=== PATIENT | male | born 1980 | race African-American/Black ===

== ENCOUNTER 2017-01-21 14:22 | Emergency (ER) | payer OTHER ==
[~2017-01-21] VITALS: Ht 175.3 cm; Wt 81.6 kg
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
[2017-01-21 15:11] LABS: APPEARANCE,URINE Clear (CLEAR); BILIRUBIN,URINE Negative (NEGATIVE); BLOOD, URINE Negative Ery/uL (NEGATIVE); COLOR,URINE Yellow (YELLOW); KETONES,URINE Trace (NEGATIVE); LEUKOCYTE ESTERASE ,URINE Negative (NEGATIVE); NITRITE, URINE Negative (NEGATIVE); PH,URINE 5.5 (5.0-8.0); PROTEIN,URINE Negative (NEGATIVE); UGLUCOSE Negative (NEGATIVE); UROBILINOGEN,URINE 0.2 EU/dL (0.2)
[2017-01-21 15:15] LABS: BASOPHILS # (AUTO) 0.1 /CMM (0.0-0.2); BASOPHILS % (AUTO) 1.1 % (0.0-2.0); EOSINOPHILS # (AUTO) 0.1 /CMM (0.0-0.7); EOSINOPHILS % (AUTO) 2.2 % (0.0-6.0); HEMATOCRIT 41 % (39-51); HEMOGLOBIN 13.4 g/dL (13.5-17.5); LYMPHOCYTES # (AUTO) 1.7 /CMM (0.8-4.8); LYMPHOCYTES % (AUTO) 31.4 % (20.0-44.0); MEAN CORPUSCULAR HEMOGLOBIN 30 PG (26.0-33.0); MEAN CORPUSCULAR HGB CONC 33 g/dl (31.0-36.0); MEAN CORPUSCULAR VOLUME 90 fL (80-96); MONOCYTES # (AUTO) 0.8 /CMM (0.1-1.30); MONOCYTES % (AUTO) 14.3 % (2.0-12.0); NEUTROPHILS # (AUTO) 2.7 /CMM (1.8-8.9); PLATELET COUNT (AUTO) 333 /CMM (150-450); RDW COEFFICIENT OF VARIATION 11.4 (11.5-15.0); RED BLOOD CELL COUNT(AUTO) 4.57 MIL/uL (4.5-6.0); WHITE BLOOD COUNT (AUTO) 5.4 K/uL (4.3-11.0)
[2017-01-21 15:23] LABS: RBC,URINE NONE SEEN /HPF (0-2); WBC,URINE 0-2 /HPF (0-3)
[2017-01-21 15:24] LABS: BACTERIA,URINE None seen /HPF (None Seen); SQUAMOUS EPITHELIAL CELL,UR Few /HPF (None Seen)
[2017-01-21 15:34] LABS: BILIRUBIN,DIRECT 0.1 mg/dL (0.0-0.2); BILIRUBIN,TOTAL 0.3 mg/dL (0.2-1.0); CALCIUM, SERUM 9.1 mg/dL (8.5-10.1); CREATININE 1.2 mg/dL (0.6-1.3); TOTAL PROTEIN, SERUM 7.8 g/dL (6.4-8.2)
--- NOTE | 2017-01-21 15:50 | NUR ---
RESTING QUIETLY, NAD NOTED. ALL NEEDS ATTENDED TO.
--- NOTE | 2017-01-21 16:45 | NUR ---
Patient discharged to home in stable condition. Written and verbal after care instructions given. Patient verbalizes understanding of instruction. AMBULATORY WITH STEADY GAIT.
[2017-01-21 16:57] VITALS: BP 134/82
== END 2017-01-21 16:58 | disposition home or self-care (01) ==
LOC: ER 14:30
DX: K64.9 Unspecified hemorrhoids (principal); B35.9 Dermatophytosis, unspecified; M19.90 Unspecified osteoarthritis, unspecified site; F17.200 Nicotine dependence, unspecified, uncomplicated
CPT/HCPCS: 36415; 74176; 80048; 80076; 81001; 83690; 85025; 99285; A4606; Z7610; 81000-TC

== ENCOUNTER 2017-02-22 09:43 | Emergency (ER) | payer OTHER ==
[~2017-02-22] VITALS: Ht 175.3 cm; Wt 81.6 kg
[2017-02-22 09:57] VITALS: BP 155/102
[2017-02-22] MEDS ORDERED: IBUPROFEN 600 MG TABLET PO ONE ×2 (10:52→11:00)
== END 2017-02-22 10:51 | disposition home or self-care (01) ==
LOC: ER 09:45
DX: L02.01 Cutaneous abscess of face (principal); I88.9 Nonspecific lymphadenitis, unspecified; F17.200 Nicotine dependence, unspecified, uncomplicated
CPT/HCPCS: 99283; A4606; Z7610

== ENCOUNTER 2017-02-24 22:34 | Emergency (ER) | payer OTHER ==
[~2017-02-24] VITALS: Ht 175.3 cm; Wt 81.6 kg
[2017-02-24 22:36] VITALS: BP 124/84
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
[2017-02-24] MEDS ORDERED: LIDOCAINE HCL/PF 1% 30 ML SDV ONE (22:53)
--- NOTE | 2017-02-24 23:01 | NUR ---
COMMUNICATIONS EQUIPMENT OPERATOR AQUINO AT BEDSIDE TO DRAIN ABSCESS.
== END 2017-02-24 23:13 | disposition home or self-care (01) ==
LOC: ER 22:38
DX: H60.01 Abscess of right external ear (principal)
CPT/HCPCS: 10060; 99283; A4606; Z7610; J3490

== ENCOUNTER 2017-06-20 16:15 | Emergency (ER) | payer OTHER ==
[~2017-06-20] VITALS: Ht 175.3 cm; Wt 81.6 kg
[2017-06-20 16:20] VITALS: BP 133/79
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
[2017-06-20] MEDS ORDERED: HYDROCODONE/APAP 5/325MG 1 EACH TABLET ONE (16:38)
[2017-06-20] MEDS ORDERED: IBUPROFEN 600 MG TABLET PO ONE (16:38)
[2017-06-20] MEDS ORDERED: IBUPROFEN 400 MG TABLET PO ONE (17:00)
[2017-06-20] MEDS ORDERED: HYDROCODONE/APAP 5/325MG 1 EACH TABLET PO ONE (17:00)
== END 2017-06-20 18:02 | disposition home or self-care (01) ==
LOC: ER 16:19
DX: S16.1XXA Strain of muscle, fascia and tendon at neck level, initial encounter (principal); F17.200 Nicotine dependence, unspecified, uncomplicated; V49.59XA Passenger injured in collision with other motor vehicles in traffic accident, initial encounter; Y93.89 Activity, other specified; Y92.413 State road as the place of occurrence of the external cause; Y99.8 Other external cause status
CPT/HCPCS: 72125; 99284; A4606; Z7610

== ENCOUNTER 2018-02-26 15:21 | Emergency (ER) | payer OTHER ==
[~2018-02-26] VITALS: Ht 175.3 cm; Wt 81.2 kg
[2018-02-26] MEDS ORDERED: LIDOCAINE 1% INJ 50 ML MDV IJ ONE (16:00)
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
--- NOTE | 2018-02-26 16:36 | NUR ---
PT. VERBALIZED UNDERSTANDING OF AFTERCARE INSTRUCTIONS.Patient discharged to home in stable condition. Written and verbal after care instructions given. Patient verbalizes understanding of instruction.
[2018-02-26 16:39] VITALS: BP 131/98
== END 2018-02-26 16:45 | disposition home or self-care (01) ==
LOC: ER 15:25
DX: S61.216A Laceration without foreign body of right little finger without damage to nail, initial encounter (principal); F17.200 Nicotine dependence, unspecified, uncomplicated; F10.10 Alcohol abuse, uncomplicated; Z60.2 Problems related to living alone; Y90.9 Presence of alcohol in blood, level not specified; W26.0XXA Contact with knife, initial encounter; Y93.89 Activity, other specified; Y92.89 Other specified places as the place of occurrence of the external cause; Y99.8 Other external cause status
CPT/HCPCS: A4606; A6402; A6403; Z7610

== ENCOUNTER 2018-03-08 16:05 | Emergency (ER) | payer OTHER ==
[~2018-03-08] VITALS: Ht 175.3 cm; Wt 79.4 kg
[2018-03-08 16:26] VITALS: BP 129/71
== END 2018-03-08 16:38 | disposition home or self-care (01) ==
LOC: ER 16:06
DX: S61.217D Laceration without foreign body of left little finger without damage to nail, subsequent encounter (principal); M19.90 Unspecified osteoarthritis, unspecified site; F17.200 Nicotine dependence, unspecified, uncomplicated; Z60.2 Problems related to living alone; X58.XXXD Exposure to other specified factors, subsequent encounter
CPT/HCPCS: 99281; A4606; Z7610; Z7502

== ENCOUNTER 2018-10-09 22:37 | Emergency (ER) | payer OTHER ==
[~2018-10-09] VITALS: Ht 175.3 cm; Wt 79.4 kg
--- NOTE | 2018-10-09 22:59 | NUR ---
PT BIBS. C/O "ATE SOME SALAD TODAY. +N/V +DIARRHEA" -SOB +N/V -DIZZY AOX4. AMBULATORY W,.STEADY GAIT. AT BEDSIDE
[2018-10-09] MEDS ORDERED: IV NS 0.9% 1,000 ML BAG IV ONE (23:00)
[2018-10-09] MEDS ORDERED: FAMOTIDINE (20 MG) 20 MG TABLET PO ONE (23:00)
[2018-10-09] MEDS ORDERED: ONDANSETRON HCL/PF 4 MG/2 ML VIAL IVP ONE (23:00)
[2018-10-09] MEDS ORDERED: KETOROLAC TROMETHAMINE INJ 30 MG/ML VIAL IV ONE (23:00)
[2018-10-09] MEDS ORDERED: MAG HYDROX/AL HYDROX/SIMETH 30 ML UDC PO ONE (23:00)
[2018-10-09] MEDS ORDERED: FAMOTIDINE (20 MG) 20 MG TABLET ONE (23:12)
[2018-10-09] MEDS ORDERED: ONDANSETRON HCL/PF 4 MG/2 ML VIAL ONE (23:12)
[2018-10-09] MEDS ORDERED: KETOROLAC TROMETHAMINE 15 MG/ML VIAL ONE (23:12)
[2018-10-09] MEDS ORDERED: MAG HYDROX/AL HYDROX/SIMETH 30 ML UDC ONE (23:12)
[2018-10-09 23:21] LABS: BASOPHILS % (AUTO) 0.4 % (0.0-2.0); EOSINOPHILS % (AUTO) 0.6 % (0.0-6.0); HEMATOCRIT 45 % (39-51); HEMOGLOBIN 14.9 g/dL (13.5-17.5); LYMPHOCYTES # (AUTO) 1.1 /CMM (0.8-4.8); LYMPHOCYTES % (AUTO) 11.3 % (20.0-44.0); MEAN CORPUSCULAR HGB CONC 33 g/dl (31.0-36.0); MEAN CORPUSCULAR VOLUME 93 fL (80-96); MONOCYTES % (AUTO) 9.5 % (2.0-12.0); NEUTROPHILS # (AUTO) 7.9 /CMM (1.8-8.9); NEUTROPHILS % (AUTO) 78.2 % (43.0-81.0); PLATELET COUNT (AUTO) 294 /CMM (150-450); WHITE BLOOD COUNT (AUTO) 10.1 K/uL (4.3-11.0)
[2018-10-09 23:30] LABS: CALCIUM, SERUM 8.8 mg/dL (8.5-10.1); CREATININE 1.1 mg/dL (0.6-1.3); POTASSIUM 3.5 mmol/L (3.5-5.1)
[2018-10-09 23:36] LABS: ALBUMIN 3.9 g/dL (3.4-5.0); BILIRUBIN,DIRECT 0.2 mg/dL (0.0-0.2); BILIRUBIN,TOTAL 0.7 mg/dL (0.2-1.0); TOTAL PROTEIN, SERUM 7.4 g/dL (6.4-8.2)
[2018-10-10] MEDS ORDERED: MORPHINE SULFATE INJ 2 MG/ML DISP.SYRIN IV ONE
[2018-10-10] MEDS ORDERED: IV LR 1000 ML 1,000 ML IV ONE (00:30)
[2018-10-10 01:59] VITALS: BP 130/91
== END 2018-10-10 02:00 | disposition home or self-care (01) ==
LOC: ER 22:39
DX: K85.20 Alcohol induced acute pancreatitis without necrosis or infection (principal); F17.200 Nicotine dependence, unspecified, uncomplicated; M19.90 Unspecified osteoarthritis, unspecified site; Z60.2 Problems related to living alone
CPT/HCPCS: 36415; 76705-TC; 80048-TC; 80076-TC; 83690-TC; 85025-TC; J1885; J2405; J7030; J7120

== ENCOUNTER 2020-10-06 12:48 | Emergency (ER) | payer MEDICAID, OTHER ==
[~2020-10-06] VITALS: Ht 175.3 cm; Wt 79.4 kg
[2020-10-06 12:49] VITALS: BP 125/79
[2020-10-06] MEDS ORDERED: LIDOCAINE /MPF 1% VIAL 5 ML VIAL ONE (13:01)
--- NOTE | 2020-10-06 13:02 | NUR ---
SEEN AND EXAMINED BY .
--- NOTE | 2020-10-06 13:21 | NUR ---
Patient discharged to home in stable condition. Written and verbal after care instructions given. Patient verbalizes understanding of instruction.
[2020-10-06] MEDS ORDERED: LIDOCAINE HCL/PF 1% 30 ML VIAL TP ONE (13:30)
== END 2020-10-06 13:23 | disposition home or self-care (01) ==
LOC: ER 12:49
DX: H60.01 Abscess of right external ear (principal); F10.10 Alcohol abuse, uncomplicated; F17.200 Nicotine dependence, unspecified, uncomplicated; Y90.9 Presence of alcohol in blood, level not specified
CPT/HCPCS: 69000; 99282; A6403; A6407; J3490 ×2

== ENCOUNTER 2021-08-28 11:37 | Emergency (ER) | payer MEDICAID, OTHER ==
[~2021-08-28] VITALS: Ht 167.6 cm; Wt 79.4 kg
[2021-08-28 11:48] VITALS: BP 129/87
--- NOTE | 2021-08-28 13:44 | NUR ---
provided w/ thumb spica. discharge in stable condition.
== END 2021-08-28 13:45 | disposition home or self-care (01) ==
LOC: ER 11:54
DX: S63.502A Unspecified sprain of left wrist, initial encounter (principal); M25.432 Effusion, left wrist; M19.90 Unspecified osteoarthritis, unspecified site; K64.8 Other hemorrhoids; W01.0XXA Fall on same level from slipping, tripping and stumbling without subsequent striking against object, initial encounter; Y93.89 Activity, other specified; Y92.89 Other specified places as the place of occurrence of the external cause; Y99.8 Other external cause status
CPT/HCPCS: 73110; 73130-TC

== ENCOUNTER 2021-09-22 11:47 | Emergency (ER) | payer OTHER ==
[~2021-09-22] VITALS: Ht 175.3 cm; Wt 86.2 kg
[2021-09-22 11:53] VITALS: BP 112/60
[2021-09-22] MEDS ORDERED: IBUPROFEN 600 MG TABLET ONE (12:00)
[2021-09-22] MEDS ORDERED: IBUPROFEN 600 MG TABLET PO ONE (12:00)
--- NOTE | 2021-09-22 12:05 | NUR ---
PT CAME TO ER C/O L SHOULDER PAIN X 5 DAYS. DENIES TRAUMA. REPORTS NUMBNESS/TINGLING IN L UPPER EXTREMITY. AAOX4, BREATHING EVEN AND UNLABORED, ASSISTED TO ER BED 12, CHANGED TO GOWN. WILL CONTINUE TO MONITOR.
[2021-09-22] MEDS ORDERED: IBUP-1955 PO (12:44)
[2021-09-22] MEDS ORDERED: CARI250T PO (12:55)
--- NOTE | 2021-09-22 12:55 | NUR ---
Patient discharged to home in stable condition. Written and verbal after care instructions given. Patient verbalizes understanding of instruction.
== END 2021-09-22 12:57 | disposition home or self-care (01) ==
LOC: ER 11:50
DX: M25.512 Pain in left shoulder (principal); M19.90 Unspecified osteoarthritis, unspecified site; Z87.738 Personal history of other specified (corrected) congenital malformations of digestive system; Z79.1 Long term (current) use of non-steroidal anti-inflammatories (NSAID)
CPT/HCPCS: 73030-TC

== ENCOUNTER 2021-09-30 07:27 | Emergency (ER) | payer OTHER ==
[~2021-09-30] VITALS: Ht 175.3 cm; Wt 81.6 kg
[~2021-09-30 07:27] MED LIST: CARI250T PO; IBUP-1955 PO
[2021-09-30 07:58] VITALS: BP 148/96
[2021-09-30] MEDS ORDERED: KETOROLAC TROMETHAMINE INJ 30 MG/ML VIAL ONE (08:19)
[2021-09-30] MEDS ORDERED: CYCLOBENZAPRINE 10 MG TABLET ONE (08:20)
[2021-09-30] MEDS: KETOROLAC TROMETHAMINE INJ 30 MG/ML VIAL IM ONE (08:24)
[2021-09-30] MEDS: CYCLOBENZAPRINE 10 MG TABLET PO ONE (08:24)
[2021-09-30] MEDS ORDERED: TRAM-351 PO (08:30)
== END 2021-09-30 08:49 | disposition home or self-care (01) ==
LOC: ER 07:29
DX: M25.512 Pain in left shoulder (principal); F17.200 Nicotine dependence, unspecified, uncomplicated; Z87.738 Personal history of other specified (corrected) congenital malformations of digestive system; Z79.1 Long term (current) use of non-steroidal anti-inflammatories (NSAID); Z79.891 Long term (current) use of opiate analgesic
CPT/HCPCS: J1885

== ENCOUNTER 2024-02-10 23:50 | Emergency (ER) | payer MEDICAID, OTHER ==
[~2024-02-10] VITALS: Ht 172.7 cm; Wt 74.8 kg
[~2024-02-10 23:50] MED LIST changes: +TRAM-351 PO
[2024-02-11 01:59] LABS: BASOPHILS # (AUTO) 0.1 K/uL (0.0-0.2); BASOPHILS % (AUTO) 0.9 % (0.0-2.0); EOSINOPHILS % (AUTO) 0.5 % (0.0-6.0); HEMATOCRIT 34 % (39-51); HEMOGLOBIN 11.4 g/dL (13.5-17.5); LYMPHOCYTES # (AUTO) 1.6 K/uL (0.8-4.8); LYMPHOCYTES % (AUTO) 28.6 % (20.0-44.0); MEAN CORPUSCULAR HEMOGLOBIN 32 PG (26.0-33.0); MEAN CORPUSCULAR HGB CONC 34 g/dl (31.0-36.0); MEAN CORPUSCULAR VOLUME 96 fL (80-96); MONOCYTES # (AUTO) 0.6 K/uL (0.1-1.30); MONOCYTES % (AUTO) 10.4 % (2.0-12.0); NEUTROPHILS # (AUTO) 3.4 K/uL (1.8-8.9); NEUTROPHILS % (AUTO) 59.6 % (43.0-81.0); PLATELET COUNT (AUTO) 224 K/uL (150-450); RED BLOOD CELL COUNT(AUTO) 3.57 MIL/uL (4.5-6.0); RED CELL DISTRIBUTION WIDTH 13.2 % (11.5-15.0); WHITE BLOOD COUNT (AUTO) 5.8 K/uL (4.3-11.0)
[2024-02-11] MEDS ORDERED: KETOROLAC TROMETHAMINE 15 MG/ML VIAL ONE (02:00)
[2024-02-11] MEDS: KETOROLAC TROMETHAMINE 15 MG/ML VIAL IV ONE (02:00)
[2024-02-11 02:07] LABS: CALCIUM, SERUM 8.3 mg/dL (8.5-10.1); CARBON DIOXIDE 28 mmol/L (21-32); CHLORIDE 104 mmol/L (98-107); CREATININE 0.9 mg/dL (0.6-1.3); GLUCOSE 105 mg/dL (74-106); POTASSIUM 3.3 mmol/L (3.5-5.1); SODIUM SERUM 142 mmol/L (136-145); UREA NITROGEN, BLOOD 12 mg/dL (7-18)
[2024-02-11] MEDS: IV NS 0.9% 1,000 ML BAG IV ONE (02:07)
[2024-02-11 02:19] LABS: NT-PRO BNP 63 pg/mL (0-125)
[2024-02-11 06:11] VITALS: BP 130/75; TEMP 98.8; O2SAT 98
== END 2024-02-11 06:12 | disposition home or self-care (01) ==
LOC: ER 23:51
DX: R07.9 Chest pain, unspecified (principal); R25.2 Cramp and spasm; M19.90 Unspecified osteoarthritis, unspecified site; F19.10 Other psychoactive substance abuse, uncomplicated; F17.200 Nicotine dependence, unspecified, uncomplicated
CPT/HCPCS: 99285; 96360; 71045; 93005; 85025; 80048; 36415; 84484 ×2; 83880; J7030; J1885

== ENCOUNTER 2024-03-26 15:33 | Emergency (ER) | payer OTHER ==
[~2024-03-26] VITALS: Ht 175.3 cm; Wt 79.4 kg
[2024-03-26] MEDS: ACETAMINOPHEN ES 500 MG TABLET PO ONE (16:20)
[2024-03-26] MEDS: IBUPROFEN 400 MG TABLET PO ONE (16:20)
[2024-03-26] MEDS ORDERED: ACET-2030 PO (17:05)
[2024-03-26] MEDS ORDERED: IBUP-1957 PO (17:05)
[2024-03-26 17:32] VITALS: BP 124/78; TEMP 98.4; O2SAT 99
== END 2024-03-26 17:32 | disposition home or self-care (01) ==
LOC: ER 15:38
DX: S20.211A Contusion of right front wall of thorax, initial encounter (principal); M19.90 Unspecified osteoarthritis, unspecified site; F19.10 Other psychoactive substance abuse, uncomplicated; F17.200 Nicotine dependence, unspecified, uncomplicated; X50.9XXA Other and unspecified overexertion or strenuous movements or postures, initial encounter; Y93.89 Activity, other specified; Y92.098 Other place in other non-institutional residence as the place of occurrence of the external cause; Y99.8 Other external cause status
CPT/HCPCS: 71100-TC

== ENCOUNTER 2024-04-13 01:23 | Emergency (ER) | payer OTHER ==
[~2024-04-13] VITALS: Ht 175.3 cm; Wt 79.4 kg
[~2024-04-13 01:23] MED LIST changes: +ACET-2030 PO; +IBUP-1957 PO
[2024-04-13 03:09] VITALS: TEMP 97.7
[2024-04-13 03:20] VITALS: BP 110/71; O2SAT 98
== END 2024-04-13 05:24 | disposition home or self-care (01) ==
LOC: ER 01:25
DX: M54.12 Radiculopathy, cervical region (principal); G89.29 Other chronic pain; R20.0 Anesthesia of skin; M19.90 Unspecified osteoarthritis, unspecified site; F19.10 Other psychoactive substance abuse, uncomplicated; F17.200 Nicotine dependence, unspecified, uncomplicated
CPT/HCPCS: 72125-TC

== ENCOUNTER 2024-04-30 04:15 | Emergency (ER) | payer OTHER ==
[~2024-04-30] VITALS: Ht 175.3 cm; Wt 79.4 kg
[2024-04-30] MEDS ORDERED: CT SWABBABLE VALVE TRANS SET 1 EA INFUS.SET MC ONE (04:56)
[2024-04-30] MEDS ORDERED: IOHEXOL-350 100 ML VIAL IV ONE (04:56)
[2024-04-30] MEDS ORDERED: IV NS 0.9% 250 ML IV ONE (04:57)
[2024-04-30 04:58] LABS: BASOPHILS # (AUTO) 0.1 K/uL (0.0-0.2); BASOPHILS % (AUTO) 1.6 % (0.0-2.0); EOSINOPHILS # (AUTO) 0.1 K/uL (0.0-0.7); EOSINOPHILS % (AUTO) 3.4 % (0.0-6.0); HEMATOCRIT 37 % (39-51); HEMOGLOBIN 12.3 g/dL (13.5-17.5); LYMPHOCYTES # (AUTO) 1.6 K/uL (0.8-4.8); LYMPHOCYTES % (AUTO) 39.7 % (20.0-44.0); MEAN CORPUSCULAR HEMOGLOBIN 30 PG (26.0-33.0); MEAN CORPUSCULAR HGB CONC 33 g/dl (31.0-36.0); MEAN CORPUSCULAR VOLUME 91 fL (80-96); MONOCYTES # (AUTO) 0.5 K/uL (0.1-1.30); MONOCYTES % (AUTO) 13.9 % (2.0-12.0); NEUTROPHILS # (AUTO) 1.6 K/uL (1.8-8.9); NEUTROPHILS % (AUTO) 41.4 % (43.0-81.0); PLATELET COUNT (AUTO) 248 K/uL (150-450); RED BLOOD CELL COUNT(AUTO) 4.06 MIL/uL (4.5-6.0); RED CELL DISTRIBUTION WIDTH 14.6 % (11.5-15.0); WHITE BLOOD COUNT (AUTO) 3.9 K/uL (4.3-11.0)
[2024-04-30 05:11] LABS: ALBUMIN 3.9 g/dL (3.4-5.0); BILIRUBIN,DIRECT 0.1 mg/dL (0.0-0.2); BILIRUBIN,TOTAL 0.4 mg/dL (0.2-1.0); CALCIUM, SERUM 9.2 mg/dL (8.5-10.1); CREATININE 0.9 mg/dL (0.6-1.3); TOTAL PROTEIN, SERUM 7.8 g/dL (6.4-8.2)
[2024-04-30 05:34] LABS: INR 0.97 (0.91-1.10); PARTIAL THROMBOPLASTIN TIME 25.9 SEC (24.3-34.3); PROTHROMBIN TIME 10.3 SECS (9.2-11.1)
[2024-04-30] MEDS ORDERED: AMOX-430 PO (07:12)
[2024-04-30] MEDS ORDERED: AMOX/CLAVULANATE 875 MG TABLET ONE (07:15)
[2024-04-30] MEDS: AMOX/CLAVULANATE 875 MG TABLET PO ONE (07:19)
[2024-04-30 07:20] VITALS: BP 135/90; TEMP 98.5; O2SAT 97
== END 2024-04-30 07:21 | disposition home or self-care (01) ==
LOC: ER 04:18
DX: K62.5 Hemorrhage of anus and rectum (principal); M19.90 Unspecified osteoarthritis, unspecified site; F19.10 Other psychoactive substance abuse, uncomplicated; F17.200 Nicotine dependence, unspecified, uncomplicated; Z79.1 Long term (current) use of non-steroidal anti-inflammatories (NSAID); Z87.19 Personal history of other diseases of the digestive system
CPT/HCPCS: 36415; 80048-TC; 80076-TC; 85025-TC; 85730-TC; J7050; Q9967

== ENCOUNTER 2024-05-03 15:34 | Emergency (ER) | payer OTHER ==
[~2024-05-03] VITALS: Ht 175.3 cm; Wt 79.4 kg
[~2024-05-03 15:34] MED LIST changes: +AMOX-430 PO
[2024-05-03 16:58] LABS: CALCIUM, SERUM 9.1 mg/dL (8.5-10.1); CARBON DIOXIDE 23 mmol/L (21-32); CHLORIDE 102 mmol/L (98-107); GLUCOSE 85 mg/dL (74-106); SODIUM SERUM 141 mmol/L (136-145); UREA NITROGEN, BLOOD 16 mg/dL (7-18)
[2024-05-03 16:59] LABS: CREATININE 1.1 mg/dL (0.6-1.3)
[2024-05-03 17:01] LABS: ALKALINE PHOSPHATASE 57 U/L (46-116); ASPARTATE AMINOTRANSFERASE 50 U/L (15-37); BILIRUBIN,DIRECT 0.2 mg/dL (0.0-0.2)
[2024-05-03 17:02] LABS: ALANINE AMINOTRANSFERASE 43 U/L (12-78); ALBUMIN 4.2 g/dL (3.4-5.0)
[2024-05-03 17:03] LABS: HEMATOCRIT 40 % (39-51); RED BLOOD CELL COUNT(AUTO) 4.35 MIL/uL (4.5-6.0); WHITE BLOOD COUNT (AUTO) 5.9 K/uL (4.3-11.0)
[2024-05-03 17:04] LABS: BASOPHILS % (AUTO) 0.6 % (0.0-2.0); EOSINOPHILS % (AUTO) 0.2 % (0.0-6.0); LYMPHOCYTES % (AUTO) 15.4 % (20.0-44.0); MEAN CORPUSCULAR HEMOGLOBIN 30 PG (26.0-33.0); MEAN CORPUSCULAR HGB CONC 33 g/dl (31.0-36.0); MEAN CORPUSCULAR VOLUME 91 fL (80-96); MONOCYTES % (AUTO) 9.5 % (2.0-12.0); NEUTROPHILS % (AUTO) 74.3 % (43.0-81.0); PLATELET COUNT (AUTO) 257 K/uL (150-450); RED CELL DISTRIBUTION WIDTH 14.5 % (11.5-15.0)
[2024-05-03 17:05] LABS: LYMPHOCYTES # (AUTO) 0.9 K/uL (0.8-4.8); MONOCYTES # (AUTO) 0.6 K/uL (0.1-1.30); NEUTROPHILS # (AUTO) 4.4 K/uL (1.8-8.9); TOTAL PROTEIN, SERUM 7.5 g/dL (6.4-8.2)
[2024-05-03 17:29] LABS: NT-PRO BNP 424 pg/mL (0-125)
[2024-05-03] MEDS ORDERED: ONDANSETRON HCL/PF 4 MG/2 ML VIAL ONE (18:09)
[2024-05-03] MEDS: IV NS 0.9% 1,000 ML BAG IV ONE (18:13)
[2024-05-03] MEDS: ONDANSETRON HCL/PF 4 MG/2 ML VIAL IV ONE (18:14)
[2024-05-03 21:10] VITALS: BP 130/83; TEMP 98.4; O2SAT 97
== END 2024-05-03 21:11 | disposition home or self-care (01) ==
LOC: ER 15:40
DX: J02.9 Acute pharyngitis, unspecified (principal); R07.89 Other chest pain; R11.2 Nausea with vomiting, unspecified; R06.02 Shortness of breath; R09.81 Nasal congestion; F17.200 Nicotine dependence, unspecified, uncomplicated; M19.90 Unspecified osteoarthritis, unspecified site; F19.10 Other psychoactive substance abuse, uncomplicated; Z87.19 Personal history of other diseases of the digestive system; Z87.39 Personal history of other diseases of the musculoskeletal system and connective tissue; Z79.1 Long term (current) use of non-steroidal anti-inflammatories (NSAID); Z20.822 Contact with and (suspected) exposure to COVID-19
CPT/HCPCS: 99285; 96360; 71045; 87426; 93005; 87804 ×2; 85025; 80048; 83690; 80076; 85378; 36415; 84484 ×2; 83880; J2405; J7030

== ENCOUNTER 2024-08-06 02:08 | Emergency (ER) | payer OTHER ==
[~2024-08-06] VITALS: Ht 175.3 cm; Wt 79.4 kg
[2024-08-06 02:16] VITALS: BP 128/90; TEMP 98.3
[2024-08-06 02:42] LABS: BASOPHILS # (AUTO) 0.1 K/uL (0.0-0.2); BASOPHILS % (AUTO) 1.9 % (0.0-2.0); EOSINOPHILS # (AUTO) 0.2 K/uL (0.0-0.7); EOSINOPHILS % (AUTO) 4.4 % (0.0-6.0); HEMATOCRIT 37 % (39-51); LYMPHOCYTES # (AUTO) 1.7 K/uL (0.8-4.8); LYMPHOCYTES % (AUTO) 36.6 % (20.0-44.0); MEAN CORPUSCULAR HEMOGLOBIN 30 PG (26.0-33.0); MEAN CORPUSCULAR HGB CONC 33 g/dl (31.0-36.0); MEAN CORPUSCULAR VOLUME 92 fL (80-96); MONOCYTES # (AUTO) 0.9 K/uL (0.1-1.30); NEUTROPHILS # (AUTO) 1.7 K/uL (1.8-8.9); NEUTROPHILS % (AUTO) 38.1 % (43.0-81.0); PLATELET COUNT (AUTO) 315 K/uL (150-450); RED BLOOD CELL COUNT(AUTO) 4.01 MIL/uL (4.5-6.0); RED CELL DISTRIBUTION WIDTH 14.1 % (11.5-15.0); WHITE BLOOD COUNT (AUTO) 4.6 K/uL (4.3-11.0)
[2024-08-06 02:54] LABS: ALBUMIN 3.7 g/dL (3.4-5.0); BILIRUBIN,DIRECT 0.1 mg/dL (0.0-0.2); BILIRUBIN,TOTAL 0.2 mg/dL (0.2-1.0); CALCIUM, SERUM 9.1 mg/dL (8.5-10.1); POTASSIUM 3.6 mmol/L (3.5-5.1); TOTAL PROTEIN, SERUM 7.8 g/dL (6.4-8.2)
[2024-08-06] MEDS ORDERED: AMOX-430 PO (03:21)
[2024-08-06] MEDS ORDERED: PHEN1SUP42 RC (03:21)
[2024-08-06 03:30] VITALS: O2SAT 98
== END 2024-08-06 03:47 | disposition home or self-care (01) ==
LOC: ER 03:34
DX: K62.5 Hemorrhage of anus and rectum (principal); F17.200 Nicotine dependence, unspecified, uncomplicated; M19.90 Unspecified osteoarthritis, unspecified site; Z59.00 Homelessness unspecified; Z79.1 Long term (current) use of non-steroidal anti-inflammatories (NSAID); Z87.19 Personal history of other diseases of the digestive system
CPT/HCPCS: 80048-TC; 80076-TC; 83690-TC; 85025-TC

== ENCOUNTER 2024-09-01 04:33 | Emergency (ER) | payer OTHER ==
[~2024-09-01] VITALS: Ht 175.3 cm; Wt 79.4 kg
[~2024-09-01 04:33] MED LIST changes: +PHEN1SUP42 RC
[2024-09-01 07:09] LABS: OCCULT BLOOD STOOL POSITIVE (NEGATIVE)
[2024-09-01] MEDS ORDERED: HYDR25SU33 RC (07:17)
[2024-09-01 07:34] VITALS: BP 121/81; TEMP 98.5; O2SAT 98
== END 2024-09-01 07:35 | disposition home or self-care (01) ==
LOC: ER 05:25
DX: K62.5 Hemorrhage of anus and rectum (principal); K64.4 Residual hemorrhoidal skin tags; K64.8 Other hemorrhoids; F17.200 Nicotine dependence, unspecified, uncomplicated; Z59.00 Homelessness unspecified; Z79.1 Long term (current) use of non-steroidal anti-inflammatories (NSAID); Z87.19 Personal history of other diseases of the digestive system
CPT/HCPCS: 82272-TC

== ENCOUNTER 2025-03-24 21:01 | Emergency (ER) | payer OTHER ==
[~2025-03-24 21:01] MED LIST changes: +HYDR25SU33 RC
== END 2025-03-24 21:23 | disposition left against medical advice (07) ==
LOC: ER 21:02
DX: Z53.21 Procedure and treatment not carried out due to patient leaving prior to being seen by health care provider (principal)